=== PATIENT | female | born 1995 | race Caucasian/White ===

== ENCOUNTER → 2023-11-25 14:59 | Outpatient (REF) | payer OTHER, SELFPAY | LOC: HWRAD 14:59 | PROVIDERS: ATTENDING PHYSICIAN Family Medicine | DX: E04.1 Nontoxic single thyroid nodule (principal) | CPT/HCPCS: 76536 ==

== ENCOUNTER → 2024-03-24 06:00 | Day surgery (SDC) | payer BC, SELFPAY | LOC: GI 06:00 | PROVIDERS: ATTENDING PHYSICIAN Internal Medicine Gastroenterology | DX: K92.1 Melena (principal); R19.4 Change in bowel habit | CPT/HCPCS: 45378 ==

== ENCOUNTER → 2024-07-28 08:33 | Outpatient (REF) | payer BC, SELFPAY ==
[2024-08-13 06:12] LABS: HPV, High Risk Not Detected; HPV, High Risk Source Cervical
== END ==
LOC: CPAP 08:33
PROVIDERS: ATTENDING PHYSICIAN Student in an Organized Health Care Education/Training Program
DX: Z01.419 Encounter for gynecological examination (general) (routine) without abnormal findings (principal)
CPT/HCPCS: 87624

== ENCOUNTER → 2024-09-14 08:28 | Outpatient (REF) | payer BC, SELFPAY ==
[2024-09-14 11:21] LABS: IgG 1038 mg/dl (700-1600)
== END ==
LOC: HWLAB 08:28
PROVIDERS: ATTENDING PHYSICIAN Internal Medicine Gastroenterology; FAMILY PHYSICIAN Family Medicine
DX: R89.9 Unspecified abnormal finding in specimens from other organs, systems and tissues (principal)
CPT/HCPCS: 36415; 82784; 83516

== ENCOUNTER → 2025-05-17 08:30 | Outpatient (REF) | payer BC, SELFPAY | LOC: PAVMRI 08:30 | PROVIDERS: ATTENDING PHYSICIAN Optometrist; FAMILY PHYSICIAN Family Medicine | DX: H53.411 Scotoma involving central area, right eye (principal) | CPT/HCPCS: 70543; 70553; A9575 ==

== ENCOUNTER → 2025-06-14 16:45 | Outpatient (REF) | payer BC, SELFPAY | LOC: MRI 3T 16:45 | PROVIDERS: ATTENDING PHYSICIAN Psychiatry & Neurology Neurology; FAMILY PHYSICIAN Family Medicine | DX: G35.D Multiple sclerosis, unspecified (principal) | CPT/HCPCS: 72156 ==

== ENCOUNTER → 2025-06-19 07:27 | Outpatient (REF) | payer BC, SELFPAY | LOC: MRI 07:27 | PROVIDERS: ATTENDING PHYSICIAN Psychiatry & Neurology Neurology; FAMILY PHYSICIAN Family Medicine | DX: G35.D Multiple sclerosis, unspecified (principal) | CPT/HCPCS: 72157; A9575 ==

== ENCOUNTER 2025-07-03 10:13 | Emergency (ER) | payer BC, SELFPAY ==
[2025-07-03 10:20] VITALS: BP 135/85
[2025-07-03 11:00] VITALS: BP 125/80
--- NOTE | 2025-07-03 11:41 | ED.GENMED ---
History of Present Illness
<Thony Jack PA-C - Last Filed: 07/03/25 19:12>
General
Chief Complaint: Headache
Source: patient
Exam Limitations: none
Time Seen by Provider: 07/03/25 11:28
History of Present Illness
History of Present Illness:
29-year-old female presents with persistent headache since 3 days ago. She received a lumbar puncture 3 days ago and her ongoing workup for MS. She has a history of optic neuritis of which she recently finished steroids for. This was of her right
side. She now notes pain mainly behind the left eye but denies any new vision change. The headache is moderate to severe worse with standing up slightly improved right now sitting down. She works here and mammogram was sent in by the radiology
department for further evaluation. She denies rash or fever. No vomiting. No chest pain or shortness of breath. She tried ibuprofen without any relief. No other needs at this time
Phy Exam
<Thony Jack PA-C - Last Filed: 07/03/25 19:12>
Physical Exam
Physical Exam:
General: Well-appearing female no acute respiratory distress
HEENT normal cephalic atraumatic pupils equal round react light extract motion intact
Heart: Regular rate and rhythm
Lungs: Clear no wheeze
Neurologic exam: Alert and oriented conversing appropriately pupils equal round reactive to light no unilateral deficit
Skin is warm no rash
Course
<Thony Jack PA-C - Last Filed: 07/03/25 19:12>
Orders/Labs/Results
Orders:
Orders
07/03/25 11:39
Test Result ONCE
07/03/25 11:41
Complete Blood Count/With Diff Urgent
Comprehensive Metabolic Panel Urgent
HCG, Serum Qualitative Screen Urgent
Sed Rate [Erythrocyte Sed Rate] Urgent
07/03/25 11:50
0.9% Sodium Chloride 1000 ml [Nss] 1,000 ml IV BOLUS
07/03/25 11:54
CRP [C-Reactive Protein] Urgent
07/03/25 12:09
NEUROLOGY CONSULT Urgent
Consulting Provider: Son Mathur
Was physician already notified: Yes
07/03/25 12:27
MR Brain W/o & With Contrast Routine
Comment:
Reason For Exam: L eye pain, MS
Recent pill cam endoscopy?: No
07/03/25 14:54
Caffeine Citrate [Caffeine Citrate Oral Solution] 600 mg PO NOW STA
Abnormal Lab Results
07/03/25
11:41
ALT 64 H U/L
(0-35)
07/03/25 11:41
07/03/25 11:41
Vital Signs
Initial and Last Documented VS:
Initial Vital Signs
Temp Pulse Resp BP Pulse Ox
98.7 F 92 16 135/85 100
07/03/25 10:20 07/03/25 10:20 07/03/25 10:20 07/03/25 10:20 07/03/25 10:20
Last Documented Vital Signs
Temp Pulse Resp BP Pulse Ox
98.7 F 95 19 125/80 100
07/03/25 10:20 07/03/25 14:30 07/03/25 14:30 07/03/25 11:00 07/03/25 14:30
<Reshma Caldwell MD - Last Filed: 07/03/25 15:14>
Orders/Labs/Results
Orders:
Orders
07/03/25 11:39
Test Result ONCE
07/03/25 11:41
Complete Blood Count/With Diff Urgent
Comprehensive Metabolic Panel Urgent
HCG, Serum Qualitative Screen Urgent
Sed Rate [Erythrocyte Sed Rate] Urgent
07/03/25 11:50
0.9% Sodium Chloride 1000 ml [Nss] 1,000 ml IV BOLUS
07/03/25 11:54
CRP [C-Reactive Protein] Urgent
07/03/25 12:09
NEUROLOGY CONSULT Urgent
Consulting Provider: Son Mathur
Was physician already notified: Yes
07/03/25 12:27
MR Brain W/o & With Contrast Routine
Comment:
Reason For Exam: L eye pain, MS
Recent pill cam endoscopy?: No
07/03/25 14:54
Caffeine Citrate [Caffeine Citrate Oral Solution] 600 mg PO NOW STA
Abnormal Lab Results
07/03/25
11:41
ALT 64 H U/L
(0-35)
07/03/25 11:41
07/03/25 11:41
Vital Signs
Initial and Last Documented VS:
Initial Vital Signs
Temp Pulse Resp BP Pulse Ox
98.7 F 92 16 135/85 100
07/03/25 10:20 07/03/25 10:20 07/03/25 10:20 07/03/25 10:20 07/03/25 10:20
Last Documented Vital Signs
Temp Pulse Resp BP Pulse Ox
98.7 F 95 19 125/80 100
07/03/25 10:20 07/03/25 14:30 07/03/25 14:30 07/03/25 11:00 07/03/25 14:30
<Thony Jack PA-C - Last Filed: 07/03/25 19:12>
MDM/Problems Addressed
Differential Diagnosis Includes:
Left-sided headache. Consider migraine versus post lumbar puncture headache versus optic neuritis
Will check labs including inflammatory markers.
<Thony Jack PA-C - Last Filed: 07/03/25 19:12>
*Pulse Oximetry
SaO2: 100
Oxygen Mode of Delivery: Room air
Patient hypoxic: no
*Critical Care Note
Total Time (30-74mins, 75-104mins- exclusive of procedures): Not Applicable
<Thony Jack PA-C - Last Filed: 07/03/25 19:12>
Update Note
Update Note:
Patient reexamined and feeling better after treatments recommended by neurology including fluids and caffeine. Neurology requested MRI of the brain which demonstrates unchanged findings of MS in bilateral hemispheres when compared to most recent
MRI in May. Blood patch was considered however not indicated at this point given the improvement of her symptoms. Patient comfortable with discharge advise she follow-up with neurology
ED Attending Note
<Thony Jack PA-C - Last Filed: 07/03/25 19:12>
-
Portions of this chart may have been created with voice recognition software.� Occasional wrong word or��sound alike� substitutions may have occurred due to the inherent limitations of voice recognition software.
<Reshma Caldwell MD - Last Filed: 07/03/25 15:14>
ED Attending Note
ED Attending Note:
29-year-old female with a possible diagnosis of MS secondary to event of optic neuritis on the right side, recently finished a course of prednisone, had an LP on Wednesday and ever since she had the LP she has been reporting a headache that is
positional. Today, the headache seemed worse, associated with pain behind her left eye. She denies visual changes, photophobia, fever, chills, neck stiffness or pain. Patient was at work today and referred to the emergency department based on her
symptoms. She denies numbness, tingling, focal weakness, or other complaints. Seen here by neurology and [facility] text to anesthesiology regarding option for blood patch. Will treat with meds, fluid, etc. in hopes of improving her symptoms, may be
related to a LP related headache. Pain behind her eye may be related to emerging optic neuritis although neurology does not feel that this is a urgent indication for steroids. Will try to get an MRI today but if unable to as per neurology can be
deferred for the near future. Patient does not have any visual abnormalities, EOMI, no photophobia, no nystagmus, denton intact
Discharge Plan
Departure
Patient Disposition: Home (Routine Discharge)
Date of Disposition: 07/03/25
Time of Disposition: 19:11
Patient with high blood pressure during this ER visit?: No
Discharge Problem:
Headache
Instructions: Headache, Adult (DC)
Prescriptions:
No Action
No Current Medications
0
Referrals:
Landon Greenberg DO [Family Provider, Family Practice]
Activity Restrictions/Additional Instructions:
Please return here for any worsening symptoms otherwise follow-up with your neurology team
Interventions
Interventions:
*Risk Screen - Suicide Last Done: 07/03/25 10:20
*General Assessment Last Done: 07/03/25 11:36
*Neglect/Abuse Screening Last Done: 07/03/25 10:20
*ED- Fall Risk Assessment Last Done: 07/03/25 11:36
*ED COVID-19 Vaccine History Last Done: 07/03/25 11:36
*ED Influenza Vaccine History Last Done: 07/03/25 11:36
ED- Neurological Assessment Last Done: 07/03/25 11:36
Discharge Date and Time
Print Language: IRISH
[2025-07-03 11:48] LABS: Hematocrit 37.7 % (37.0-47.0); Hemoglobin 12.7 g/dL (12.0-16.0); Mean Corp Hgb Conc. 33.7 g/dL (33.0-37.0); Mean Corpuscular Volume 87.5 fL (81.0-99.0); Nucleated Red Blood Cells % 0 %; Platelet Count 170 10^3/uL (130-400); Red Cell Dist. Width 12.1 % (11.5-14.5)
[2025-07-03] MEDS: NSS 1000 IV (11:57)
[2025-07-03 12:08] LABS: HCG, Serum Qualitative Screen Negative
[2025-07-03 12:30] LABS: ALT (SGPT) 64 U/L (0-35); AST (SGOT) 28 U/L (14-36); Albumin 4.4 g/dl (3.5-5.0); Alkaline Phosphatase 53 U/L (38-126); Blood Urea Nitrogen 15 mg/dl (7-17); Calcium 9.5 mg/dl (8.4-10.2); Carbon Dioxide 22 mmol/L (22-30); Chloride 107 mmol/L (98-107); Glucose 86 mg/dl (70-99); Potassium 4.0 mmol/L (3.5-5.1); Sodium 136 mmol/L (135-145); Total Protein 7.0 g/dl (6.3-8.2); eGFR > 60.00
[2025-07-03 12:34] LABS: C-Reactive Protein < 5.00 mg/L (0.0-10.00)
--- NOTE | 2025-07-03 13:25 | CON.NEURO4 ---
Consultation - Neurology 4
-
CONSULTING PHYSICIAN: Son Mathur MD
REFERRING PHYSICIAN: Thony Jack PA-C
DICTATED BY: Son Mathur MD
DATE/TIME OF REQUEST: 07/03/2025
DATE/TIME OF CONSULTATION: 07/03/2025
Reason for Consultation: Headache
ASSESSMENT AND PLAN:
The patient is a 29 years old female with a possible diagnosis of multiple sclerosis for which she has been seen by neurologist who is a multiple sclerosis specialist, as an outpatient, as per patient. The patient reportedly has optic neuritis on
the right side and has recently finished a course of prednisone. She had a lumbar puncture done about 4 days ago and since that time she has been reporting a headache that is positional. The patient came back to work yesterday and the headache
became worse, the headache was bilateral especially behind the left eye. The patient will be treated with medications, and if she does not improve then the option for a blood patch will be considered.
The patient was given intravenous fluid bolus of 1 L normal saline and she also received caffeine citrate oral solution. The patient is being discharged today as she is feeling much better and her headache is tolerable at this time. She will
follow-up with her neurologist as an outpatient.
History of Present Illness:
The patient is a 29 years old female with a possible diagnosis of multiple sclerosis for which she has been seen by neurologist who is a multiple sclerosis specialist, as an outpatient, as per patient. The patient reportedly has optic neuritis on
the right side and has recently finished a course of prednisone. She had a lumbar puncture done about 4 days ago and since that time she has been reporting a headache that is positional. The patient came back to work yesterday and the headache
became worse, the headache was bilateral especially behind the left eye. The patient will be treated with fluids and medications and if she does not improve then the option for a blood patch will be considered.
Review of Systems:
A 10 point review of systems was done aside from as given in the history of present illness.
Neurologic Examination:
The patient is alert and oriented x 3,
Speech is clear,
The cranial nerves II to XII are grossly intact,
The motor strength is grossly 5 out of 5 bilaterally in the upper and lower extremities,
Sensations are grossly intact,
The cerebellar examination does not show limb ataxia.
Vital Signs and Labs
-
Vital Signs and Labs:
Vital Signs
Temp Pulse Resp BP Pulse Ox
37.1 C 95 19 125/80 100
07/03/25 10:20 07/03/25 14:30 07/03/25 14:30 07/03/25 11:00 07/03/25 14:30
Lab Results
07/03/25 11:41
07/03/25 11:41
Sodium 136 mmol/L (135-145) 07/03/25 11:41
Potassium 4.0 mmol/L (3.5-5.1) 07/03/25 11:41
BUN 15 mg/dl (7-17) 07/03/25 11:41
Glucose 86 mg/dl (70-99) 07/03/25 11:41
Calcium 9.5 mg/dl (8.4-10.2) 07/03/25 11:41
Medications
-
Home Medications
�Medication �Instructions �Recorded
No Meds [No Current Medications] 12/03/21
[2025-07-03] MEDS: CAFFEINE CITRATE ORAL SOLUTION 600 MG PO (15:18)
[2025-07-03 19:35] VITALS: BP 129/77
== END 2025-07-03 19:39 | disposition home or self-care (01) ==
LOC: EMR 10:13
PROVIDERS: Physician Assistant; CONSULT PHYSICIAN Psychiatry & Neurology Neurology; EMERGENCY PHYSICIAN Emergency Medicine; FAMILY PHYSICIAN Family Medicine
DX: R51.9 Headache, unspecified (principal); G35.D Multiple sclerosis, unspecified
CPT/HCPCS: 99284; 96360; 70553; 80053; 84703; 85025; 85652; 86140; A9575